=== PATIENT | female | born 1960 | race Caucasian/White ===

== ENCOUNTER → 2022-11-05 | Outpatient (CLI) | payer BC ==
[~2022-11-05] VITALS: Ht 167.6 cm; Wt 101.3 kg
[~2022-11-05] MED LIST: ASPIRIN E.C. 8181 MG PO; EFFIENT10 MG PO; HYDROXYURE500 MG/CAP PO; LEVOXYL0.125 MG PO; LIPITOR 10MG10 MG PO; LIPITOR20 MG PO; LOPRESSOR 225 MG/TAB PO; SIKLOS1000 MG PO; TYLENOL 325MG325 MG PO; VASOTEC 2.2.5 MG/TAB PO
[2022-11-05 09:36] VITALS: BP 147/101; PULSE 70; TEMP 97.6
[2022-11-05 11:15] VITALS: BP 161/92; PULSE 71
== END ==
LOC: COL.RAD 09:03
DX: M47.26 Other spondylosis with radiculopathy, lumbar region (principal)
CPT/HCPCS: J3301